=== PATIENT | female | born 1960 | race Caucasian/White ===

== ENCOUNTER → 2017-04-20 | Outpatient (CLI) | payer OTHER ==
[~2017-04-20] MED LIST: Ambien PO; Coreg PO; HYZAAR 50-121 TABLE1 PO; MOTRIN800 MG PO; THERAGRAN1 TABLET PO; TOPAMAX25 MG PO; TORADOL10 MG PO; ULTRACET1 TABLET PO; [UNRECOGNIZED DRUG - OTHER] PO
== END | disposition home or self-care (01) ==
LOC: CDC 12:41
DX: R94.31 Abnormal electrocardiogram [ECG] [EKG] (principal); K43.2 Incisional hernia without obstruction or gangrene
CPT/HCPCS: 93000

== ENCOUNTER 2017-05-01 07:09 | Day surgery (SDC) | payer OTHER ==
[~2017-05-01] VITALS: Ht 167.6 cm; Wt 125.6 kg
[~2017-05-01 07:09] MED LIST changes: +AMERGE2.5 MG PO; +CALCIUM 500 MG1 EACH PO; +COREG12.5 M1 PO; +CYANOCOBALAM1000 MCG PO; +DICYCLOMINE HCL20 MG PO; +HYZAAR 50-121 TABLET PO; +MAGNESIUM OXID200 MG PO; +OMEPRAZOLE40 M1 PO; +POTASSIUM-9999 MG PO; +VITAMIN B-6250 MG PO; +VITAMIN E400 UNIT PO; +VOLTAREN75 MG PO
[2017-05-01 08:01] VITALS: BP 137/79
[2017-05-01 09:13] LABS: METH RESISTANT S AUREUS PCR NEGATIVE (NEGATIVE); PROBE CHECK PASS; SPECIMEN PROCESSING CONTROL PASS
[2017-05-01] MEDS ORDERED: MOTRIN600 MG PO (12:16)
[2017-05-01] MEDS ORDERED: NORCO 5/3251 TABLET PO (12:16)
[2017-05-01 14:13] VITALS: BP 123/80
[2017-05-01 15:00] VITALS: BP 123/80
[2017-05-01 17:04] VITALS: BP 120/78
[2017-05-01 18:22] VITALS: BP 113/55
[2017-05-01 23:45] VITALS: BP 111/60
[2017-05-02 03:23] VITALS: BP 106/59
[2017-05-02 07:45] VITALS: BP 106/59
== END 2017-05-02 12:10 | disposition home or self-care (01) ==
LOC: SDC 07:09 → 2SOUTH 12:00 → SDC 14:45 → 2EASTP 17:54
PROVIDERS: Surgery
PROC: 0WUF4JZ Supplement Abdominal Wall with Synthetic Substitute, Percutaneous Endoscopic Approach (ICD-10-PCS; principal; 2017-05-01)
DX: K43.2 Incisional hernia without obstruction or gangrene (principal); I10 Essential (primary) hypertension; K21.9 Gastro-esophageal reflux disease without esophagitis; Z82.49 Family history of ischemic heart disease and other diseases of the circulatory system; Z83.3 Family history of diabetes mellitus; Z80.1 Family history of malignant neoplasm of trachea, bronchus and lung; Z82.5 Family history of asthma and other chronic lower respiratory diseases; Z87.891 Personal history of nicotine dependence
CPT/HCPCS: 87641; 88300; C1781; G0378; J0690; J1100; J1170; J1200; J1885; J2250; J2405; J2710; J3010; S0020

== ENCOUNTER 2017-10-20 23:47 | Emergency (ER) | payer OTHER ==
[~2017-10-20] VITALS: Ht 167.6 cm; Wt 101.9 kg
[~2017-10-20 23:47] MED LIST changes: +MOTRIN600 MG PO; +NORCO 5/3251 TABLET PO
[2017-10-20 23:49] VITALS: BP 147/91
[2017-10-21] MEDS ORDERED: ULTRAM50 MG PO (02:05)
[2017-10-21] MEDS ORDERED: AUGMENTIN875 MG PO (02:05)
== END 2017-10-21 02:41 | disposition home or self-care (01) ==
LOC: EME 23:47 → EXP 23:47
PROC: 0CQ0XZZ Repair Upper Lip, External Approach (ICD-10-PCS; principal; 2017-10-21)
DX: S01.511A Laceration without foreign body of lip, initial encounter (principal); W54.0XXA Bitten by dog, initial encounter; Z88.1 Allergy status to other antibiotic agents; Z88.6 Allergy status to analgesic agent; Z88.5 Allergy status to narcotic agent
CPT/HCPCS: 99281; 99285; J0295; J2270; J2405; J7030; J7050